=== PATIENT | female | born 1935 | race American Indian/Alaskan Native ===

== ENCOUNTER 2019-05-09 09:21 | Outpatient (CLI) | payer MEDICARE, OTHER ==
--- NOTE | 2019-05-09 10:22 | Mammography Report ---
DEXA BONE DENSITY SCAN INDICATION: POST MENOPAUSAL. COMPARISON: None available. LUMBAR SPINE (L1-L4): Bone mineral density (BMD) is 1.113 g/cm2. T-score is +0.6 (standard deviations of Young Adult mean). Z-score is +2.7 (standard deviations of Age Matched mean). LEFT FOREARM: Bone mineral density (BMD) is 0.605 g/cm2. T-score is +0.8 (standard deviations of Young Adult mean). Z-score is +4.3 (standard deviations of Age Matched mean). LEFT FEMORAL NECK: Bone mineral density (BMD) is 0.958 g/cm2. T-score is +1.0 (standard deviations of Young Adult mean). Z-score is -1.9 (standard deviations of Age Matched mean). IMPRESSION: 1. WHO Classification: Normal bone density. Fracture Risk: Not Increased. Signer Name: Earnest Zamora MD Signed: 05/09/2019 10:17 AM Workstation Name: [id number]
== END 2019-05-09 09:22 | disposition home or self-care (01) ==
LOC: MAMMO 09:21
PROVIDERS: ATTEND Physician Assistant
DX: Z13.820 Encounter for screening for osteoporosis (principal); Z78.0 Asymptomatic menopausal state
CPT/HCPCS: 77080

== ENCOUNTER 2021-07-30 09:40 | Outpatient (CLI) | payer MEDICARE, OTHER ==
--- NOTE | 2021-07-30 11:13 | Mammography Report ---
DEXA BONE DENSITY SCAN INDICATION: Postmenopausal.. COMPARISON: 05/07/2019. DEFINITIONS: BMD = Bone Mineral Density T-score = BMD related to mean peak bone mass of a young child (mean expressed in standard deviation) Z-score = age matched BMD is expressed in SD World Health Organization (WHO) diagnostic criteria Normal T score > -1 SD Osteopenia T score between -1 and -2.4 SD Osteoporosis T score -2.5 SD or below. LUMBAR SPINE (L1-L4): Bone mineral density (BMD) is 1.115 g/cm2. T-score is +0.6 (standard deviations of Young Adult mean). Z-score is +2.8 (standard deviations of Age Matched mean). LEFT FEMORAL NECK: Bone mineral density (BMD) is 1.024 g/cm2. T-score is +0.7 (standard deviations of Young Adult mean). Z-score is +1.7 (standard deviations of Age Matched mean). IMPRESSION: 1. WHO Classification: Normal bone density. Fracture Risk: Not Increased. Signer Name: Chris Chen MD Signed: 07/30/2021 11:08 AM Workstation Name: [id number]
== END 2021-07-30 09:41 | disposition home or self-care (01) ==
LOC: MAMMO 09:40
PROVIDERS: ATTEND Physician Assistant
DX: Z13.820 Encounter for screening for osteoporosis (principal); Z78.0 Asymptomatic menopausal state
CPT/HCPCS: 77080